=== PATIENT | female | born 1955 | race Caucasian/White ===

== ENCOUNTER → 2016-07-14 | Outpatient (CLI) | payer OTHER ==
[~2016-07-14] MED LIST: ADVAIR 1001 DISK W/D PO; B6100 MG PO; BIAXIN; DILAUDID2 MG PO; FISH OIL300 MG; FLEXERIL PO; HCTZ PO; HYDROCHLOROTHIA25 MG PO; KETOPROFEN PO; LOPRESSOR PO; MULTI-DAY1 TAB PO; NORVASC PO; NORVASC10 MG PO; PHENERGAN25 MG PO; ROBAXIN PO; SYNTHROID PO; SYNTHROID0.05 MG PO; TOPROL XL PO; TYLENOL #3 PO; VICODIN 5/500 T1 TAB PO; VITAMIN B 12 PO; VOLTAREN50 MG PO
[2016-07-14 14:17] LABS: BASOPHIL# 0.1 X10e3 (0-0.3); BASOPHIL% 1.5 % (0-2.5); EOSINOPHIL% 0.5 % (0.0-7.0); HEMATOCRIT 36.7 % (35.0-45.0); LYMPHOCYTE# 2.1 X10e3 (1.0-3.5); LYMPHOCYTE% 29.2 % (17.0-45.0); MEAN CELL VOLUME 83.6 FL (83-96); MEAN CORPUSCULAR HEMOGLOBIN 27.3 PG (28-34); MEAN CORPUSCULAR HGB CONC 32.6 g/dL (30-36); MEAN PLATELET VOLUME 9.6 FL (6.5-11.5); MONOCYTE# 0.6 X10e3 (0-1.0); MONOCYTE% 7.9 % (3.0-12.0); NEUTROPHIL# 4.3 X10e3 (1.5-7.1); NEUTROPHIL% 60.9 % (40-75); PLATELET COUNT 256 X10e3 (140-420); RED BLOOD COUNT 4.39 X10e (3.90-5.30); RED CELL DISTRIBUTION WIDTH 13.3 % (11.0-15.5); WHITE BLOOD COUNT 7.1 X10e3 (4.0-10.5)
[2016-07-14 14:18] LABS: DIFF IND NO
[2016-07-14 14:37] LABS: ALBUMIN SERUM 3.8 g/dL (3.5-5.0); ALKALINE PHOSPHATASE 122 U/L (32-92); ALT (SGPT) 14 U/L (10-40); AMYLASE 41 U/L (0-46); AST (SGOT) 23 U/L (10-42); BILIRUBIN,TOTAL 0.6 mg/dL (0.2-2.0); BLOOD UREA NITROGEN 14 mg/dL (9-23); CALCIUM SERUM 9.3 mg/dL (8.4-10.2); CARBON DIOXIDE 28 mmol/L (22-31); CHLORIDE 106 mmol/L (100-111); CREATININE SERUM 0.7 mg/dL (0.6-1.4); GLOM FILT RATE Estimated ABOVE60 mL/min (>60); GLUCOSE FASTING 98 mg/dL (70-110); LIPASE 32 U/L (22-51); POTASSIUM 3.6 mmol/L (3.5-5.1); PROTEIN TOTAL SERUM 7.8 g/dL (6.0-8.3); SODIUM 137 mmol/L (135-145)
== END | disposition home or self-care (01) ==
LOC: CLAB 13:54
PROVIDERS: Internal Medicine Gastroenterology
DX: K86.1 Other chronic pancreatitis (principal)
CPT/HCPCS: 36415; 80053; 82150; 83690; 85025